=== PATIENT | female | born 1980 | race Caucasian/White ===

== ENCOUNTER → 2017-06-14 | Outpatient (CLI) | payer OTHER ==
--- NOTE | 2017-06-14 11:08 | XR ---
EXAMINATION TYPE: XR finger RT DATE OF EXAM: 06/14/2017 COMPARISON: NONE HISTORY: Pain and bump on distal fifth digit for several months TECHNIQUE: Three-view right fifth digit FINDINGS: No acute or subacute fractures are evident. No osseous abnormality is evident. There is a c alcification along the dorsal distal interphalangeal joint space may be a calcified tendon. Correlate with location of the patient's abnormality. IMPRESSION: 1. Suspected calcified extensor tendon distal interphalangeal joint space. Old avulsion could be con sidered. No donor site is identified.
== END | disposition home or self-care (01) ==
LOC: RADXRMAIN 10:24
PROVIDERS: ATTEND Nurse Practitioner Women's Health
DX: M79.644 Pain in right finger(s) (principal)

== ENCOUNTER → 2019-03-12 | Outpatient (CLI) | payer OTHER ==
--- NOTE | 2019-03-12 11:00 | MM ---
Reason for exam: clinical finding. History: Family history of breast cancer in cousin at age 50. Taking hormonal contraceptives beginning at age 23. 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 MG Diagnostic Mammo w CAD CELINA Bilateral CC and MLO view(s) were taken. Spot compression MLO, spot compression CC, and ML view(s) were taken of the left breast. The breast tissue is heterogeneously dense. This may lower the sensitivity of mammography. Left upper inner quadrant palpable marker. Underlying global asymmetry. Spot views show no persisting distortion. An underlying cyst is possible. These results were verbally communicated with the patient and result sheet given to the patient on 03/12/19. ASSESSMENT: Incomplete: need additional imaging evaluation, BI-RAD 0 RECOMMENDATION: Ultrasound. (targeted to palpable)
[2019-03-12 11:01] LABS: Basophils % (A) 1 %; Eosinophils # (A) 0.1 k/uL (0-0.7); Eosinophils % (A) 1 %; HCT 42.2 % (34.0-46.0); HGB 13.8 gm/dL (11.4-16.0); Lymphocytes # (A) 1.5 k/uL (1.0-4.8); Lymphocytes % (A) 40 %; MCH 29.1 pg (25.0-35.0); MCHC 32.8 g/dL (31.0-37.0); MCV 88.6 fL (80.0-100.0); Mean Platelet Volume 6.6; Monocytes # (A) 0.2 k/uL (0-1.0); Monocytes % (A) 6 %; Neutrophils # (A) 1.8 k/uL (1.3-7.7); Neutrophils % (A) 50 %; Platelet Count 245 k/uL (150-450); RBC 4.76 m/uL (3.80-5.40); RDW 13.2 % (11.5-15.5); WBC 3.7 k/uL (3.8-10.6)
--- NOTE | 2019-03-12 11:03 | USB ---
Reason for exam: additional evaluation requested from abnormal screening. History: Family history of breast cancer in cousin at age 50. Taking hormonal contraceptives beginning at age 23. US Breast Limited LT Left limited breast ultrasound including focal area of concern, retroareolar and axilla demonstrates a 2.3 x 1.5 x 0.9cm oval, benign, fatty node at the axilla. No cystic or solid lesion seen in left upper outer quadrant. Scanned 12-3 o'clock. Dense tissue noted 1-2 o'clock. Mammographic findings suggest global asymmetry. These results were verbally communicated with the patient and result sheet given to the patient on 03/12/19. ASSESSMENT: Benign, BI-RAD 2 RECOMMENDATION: Routine screening mammogram of both breasts at age 40. (unless clinical indication to start sooner) Patient should continue monthly self breast exams. A negative report should not preclude additional follow up of suspicious palpable abnormalities.
[2019-03-12 11:07] LABS: ALT 53 U/L (9-52); AST 40 U/L (14-36); African American GFR (CKD) >90 (>60 ml/min/1.73 sqM); Albumin 4.5 g/dL (3.5-5.0); Alkaline Phosphatase 77 U/L (38-126); Anion Gap 8 mmol/L; Blood Urea Nitrogen 10 mg/dL (7-17); C Reactive Protein 9.3 mg/L (<10.0); Calcium 9.3 mg/dL (8.4-10.2); Carbon Dioxide 28 mmol/L (22-30); Chloride 106 mmol/L (98-107); Cholesterol 204 mg/dL (<200); Glucose 99 mg/dL (74-99); HDL Cholesterol 37 mg/dL (40-60); LDL Cholesterol,Calculated 118 mg/dL (0-99); Potassium 4.4 mmol/L (3.5-5.1); Sodium 142 mmol/L (137-145); Total Bilirubin 0.4 mg/dL (0.2-1.3); Total Protein 7.3 g/dL (6.3-8.2); Triglycerides 247 mg/dL (<150)
[2019-03-12 11:21] LABS: T4, Free (Free Thyroxine) 0.99 ng/dL (0.78-2.19)
== END | disposition home or self-care (01) ==
LOC: RADMAMWWP 08:29
PROVIDERS: ATTEND Family Medicine
DX: N63.0 Unspecified lump in unspecified breast (principal); E78.00 Pure hypercholesterolemia, unspecified
CPT/HCPCS: 36415; 77066; 80053; 80061; 84439; 84443; 85025; 86140

== ENCOUNTER → 2019-04-17 | Outpatient (CLI) | payer OTHER ==
--- NOTE | 2019-04-17 14:58 | US ---
EXAMINATION TYPE: US liver DATE OF EXAM: 04/17/2019 COMPARISON: NONE CLINICAL HISTORY: 38-year-old female R94.5 ABN RESULTS OF LIVER FUNCTIONS. 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 FINDINGS: EXAM MEASUREMENTS: Liver Length: 14.3 cm Gallbladder Wall: 0.2 cm CHD: 3.6 mm Right Kidney: 9.9 x 4.7 x 4.2 cm Pancreas: Appears echogenic. Suboptimal visualization of the pancreatic tail secondary to shadowing from bowel gas. Liver: Appears coarse and slightly echogenic and heterogenous Gallbladder: Mobile echogenic focus with shadow= 1.4 cm. Abnormal gallbladder distention, wall thick ening, or pericholecystic fluid. Evidence for sonographic Love's sign: neg CBD: Obscured by overlying bowel gas CHD: wnl Right Kidney: wnl IMPRESSION: 1. Suspect at least mild hepatic steatosis. Correlate with LFTs, lipid profile, and patient risk fact ors. 2. A 1.4 cm gallstone. 3. Findings of acute cholecystitis. 3. Only a small portion of the common hepatic duct is seen and is normal caliber.
== END | disposition home or self-care (01) ==
LOC: RADUSWWP 10:54
PROVIDERS: ATTEND Family Medicine
DX: K80.00 Calculus of gallbladder with acute cholecystitis without obstruction (principal)
CPT/HCPCS: 76705

== ENCOUNTER → 2021-02-06 | Outpatient (CLI) | payer OTHER ==
--- NOTE | 2021-02-09 08:54 | MM ---
Reason for exam: screening (asymptomatic). Last mammogram was performed 1 year and 11 months ago. History: Family history of breast cancer in cousin at age 50. Taking hormonal contraceptives beginning at age 23. Physical Findings: A clinical breast exam by your physician is recommended on an annual basis and results should be correlated with mammographic findings. MG Screening Mammo w CAD Bilateral CC and MLO view(s) were taken. Prior study comparison: March 12, 2019, bilateral MG diagnostic mammo w CAD CELINA. The breast tissue is heterogeneously dense. This may lower the sensitivity of mammography. Previous mammotome biopsy in the right breast. Developing asymmetry left breast middle depth lower inner quadrant. ASSESSMENT: Incomplete: need additional imaging evaluation, BI-RAD 0 RECOMMENDATION: Special view mammogram of the left breast. If lesion persists on supplemental views, image directed ultrasound is recommended. [facility] will attempt to contact patient to return for supplemental views and ultrasound if indicated.
== END | disposition home or self-care (01) ==
LOC: RADMAMWWP 09:39
PROVIDERS: ATTEND Family Medicine
DX: Z12.31 Encounter for screening mammogram for malignant neoplasm of breast (principal); Z80.3 Family history of malignant neoplasm of breast
CPT/HCPCS: 77067

== ENCOUNTER → 2021-02-10 | Outpatient (CLI) | payer OTHER ==
--- NOTE | 2021-02-10 11:35 | MM ---
Reason for exam: additional evaluation requested from abnormal screening. Last mammogram was performed less than 1 month ago. History: Family history of breast cancer in paternal aunt and breast cancer in paternal cousin at age 50. Taking hormonal contraceptives beginning at age 23. Physical Findings: Nurse did not find any significant physical abnormalities on exam. MG Work Up Mamm w CAD LT Spot compression CC, spot compression MLO, and LM view(s) were taken of the left breast. Prior study comparison: February 06, 2021, bilateral MG screening mammo w CAD. March 12, 2019, bilateral MG diagnostic mammo w CAD CELINA. The breast tissue is heterogeneously dense. This may lower the sensitivity of mammography. Nodule 6mm inferior medial position 7.5cm from nipple left breast. These results were verbally communicated with the patient and result sheet given to the patient on 02/10/21. ASSESSMENT: Incomplete: need additional imaging evaluation, BI-RAD 0 RECOMMENDATION: Ultrasound of the left breast.
--- NOTE | 2021-02-10 11:36 | USB ---
Reason for exam: additional evaluation requested from abnormal screening. History: Family history of breast cancer in paternal aunt and breast cancer in paternal cousin at age 50. Taking hormonal contraceptives beginning at age 23. US Breast Workup Limited LT Left limited breast ultrasound including focal area of concern, retroareolar and axilla demonstrates no cystic or solid lesion seen. No sonographic correlate. 3 month follow up left diagnostic mammogram with tomosynthesis. These results were verbally communicated with the patient and result sheet given to the patient on 02/10/21. ASSESSMENT: Probably benign, BI-RAD 3 RECOMMENDATION: Follow-up diagnostic mammogram of the left breast in 3 months.
== END | disposition home or self-care (01) ==
LOC: RADMAMWWP 08:01
PROVIDERS: ATTEND Family Medicine
DX: N63.25 Unspecified lump in the left breast, overlapping quadrants (principal); Z80.3 Family history of malignant neoplasm of breast
CPT/HCPCS: 77065

== ENCOUNTER → 2021-02-18 | Outpatient (CLI) | payer OTHER ==
--- NOTE | 2021-02-18 09:54 | XR ---
EXAMINATION TYPE: XR shoulder complete LT DATE OF EXAM: 02/18/2021 Comparison: None Clinical History: 40-year-old female M25.512 pain in left shoulder Findings: AC joint appears intact. Subacromial space is preserved. No tendinous or bursal calcifications. Oval focus of sclerosis in the humeral head measuring 1.3 cm suggesting a bone island. No acute fracture, subluxation, or dislocation. Impression: No acute osseous abnormalities seen.
== END | disposition home or self-care (01) ==
LOC: RADXRMAIN 09:14
PROVIDERS: ATTEND Family Medicine
DX: M25.512 Pain in left shoulder (principal)

== ENCOUNTER → 2021-05-26 | Outpatient (CLI) | payer OTHER ==
--- NOTE | 2021-05-26 11:27 | MM ---
Reason for exam: follow-up at short interval from prior study. Last mammogram was performed 3 months ago. History: Family history of breast cancer in paternal aunt and breast cancer in paternal cousin at age 50. Taking hormonal contraceptives beginning at age 23. Physical Findings: Nurse did not find any significant physical abnormalities on exam. MG 3D Diag Mammo W/Cad LT CC, MLO, and spot compression CC view(s) were taken of the left breast. Prior study comparison: February 10, 2021, left breast MG work up mamm w CAD LT. March 12, 2019, bilateral MG diagnostic mammo w CAD CELINA. The breast tissue is heterogeneously dense. This may lower the sensitivity of mammography. Focal asymmetry left breast compresses normally. No significant new findings when compared with previous films. These results were verbally communicated with the patient and result sheet given to the patient on 05/26/21. ASSESSMENT: Benign, BI-RAD 2 RECOMMENDATION: Return to routine screening mammogram schedule for both breasts. Back on schedule for January 2022.
== END | disposition home or self-care (01) ==
LOC: RADMAMWWP 10:10
PROVIDERS: ATTEND Family Medicine
DX: R92.2 Inconclusive mammogram (principal); Z79.3 Long term (current) use of hormonal contraceptives; Z80.3 Family history of malignant neoplasm of breast
CPT/HCPCS: 77065; G0279; 77061

== ENCOUNTER → 2024-07-13 | Outpatient (CLI) | payer OTHER ==
--- NOTE | 2024-07-17 18:46 | MM ---
Reason for Exam: Screening (asymptomatic). Last mammogram was performed 1 year(s) and 3 month(s) ago. Patient History: Menarche at age 13. First Full-Term at age 20. Premenopausal. Currently using Hormonal Contraceptives, starting at age 23. Paternal cousin had breast cancer, age 50. Paternal aunt had breast cancer, age 60. Risk Values: Dalia 5 year model risk: 0.6%. NCI Lifetime model risk: 8.8%. Prior Study Comparison: 02/10/2021 Left Diagnostic Mammogram, [facility]. 05/26/2021 Left Diagnostic Mammogram, [facility]. 04/19/2023 Bilateral MG 3D diag mammo w/cad CELINA, [facility]. Tissue Density: The breasts are heterogeneously dense, which may obscure small masses. Findings: Analyzed By CAD. Unchanged bilateral areas of asymmetric density. There is no suspicious group of microcalcifications or new suspicious mass in either breast. Overall Assessment: Benign, BI-RAD 2 Management: Screening Mammogram of both breasts in 1 year. . Patient should continue monthly self-breast exams. A clinical breast exam by your physician is recommended on an annual basis. This exam should not preclude additional follow-up of suspicious palpable abnormalities. Note on Dalia scores and lifetime risk: 1. A Dalia score greater than 3% is considered moderate risk. If this is the case, consider specialist referral to assess eligibility for a risk reducing agent. 2. If overall lifetime risk for the development of breast cancer is 20% or higher, the patient may qualify for future screening with alternating mammogram and breast MRI. [facility], , 07/17/2024 6:44 PM. Electronically signed and approved by: Elina Cali M.D. Radiologist
== END | disposition home or self-care (01) ==
LOC: RADMAMWWP 13:26
PROVIDERS: ATTEND Family Medicine
DX: Z12.31 Encounter for screening mammogram for malignant neoplasm of breast
CPT/HCPCS: 77063; 77067